=== PATIENT | female | born 1965 | race African-American/Black ===

== ENCOUNTER 2016-08-08 13:27 | Emergency (ER) | payer OTHER, BC ==
[2016-08-08] MEDS ORDERED: HYDROCODONE/ACETAMINOPHEN 5-325 MG TABLET PO ONE (14:30)
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
[2016-08-08 20:54] VITALS: BP 152/83
== END 2016-08-08 18:14 | disposition home or self-care (01) ==
LOC: ER 13:27
DX: S29.012A Strain of muscle and tendon of back wall of thorax, initial encounter (principal); I10 Essential (primary) hypertension; M54.9 Dorsalgia, unspecified; M54.6 Pain in thoracic spine; V87.7XXA Person injured in collision between other specified motor vehicles (traffic), initial encounter
CPT/HCPCS: 72070; 99283

== ENCOUNTER 2016-09-24 12:24 | Inpatient (IN) | payer BC, OTHER ==
[2016-09-24] MEDS ORDERED: ASPIRIN 81 MG TABLET, CHEWABLE PO ONE (12:53)
[2016-09-24] MEDS ORDERED: METOCLOPRAMIDE HCL ORAL SOLN 10 MG/10 ML UDCUP PO ONE (13:10)
[2016-09-24] MEDS ORDERED: LIDOCAINE 2% VISCOUS SOLN 20 ML UDCUP PO ONE (13:10)
[2016-09-24] MEDS ORDERED: MAG HYDROX/AL HYDROX/SIMETH SUSP 30 ML UDCUP PO ONE (13:10)
--- NOTE | 2016-09-24 13:12 | ER Document Report ---
ED Medical Screen (RME) - General Chief Complaint: Chest Pain Stated Complaint: CHEST PAIN Time Seen by Provider: 09/24/16 13:10 TRAVEL OUTSIDE OF THE [place] IN LAST 30 DAYS: No - HPI Notes: 09/24/16 13:11 Chest pain starting yesterday increasing early this morning 6 o'clock denies any cardiac history - Related Data Allergies/Adverse Reactions: No Known Allergies Allergy (Verified 09/24/16 12:50) Past Medical History - Past Medical History Cardiac Medical History: Reports: Hx Hypertension Renal/ Medical History: Denies: Hx Peritoneal Dialysis - Immunizations Hx Diphtheria, Pertussis, Tetanus Vaccination: Yes Review of Systems - Review of Systems Cardiovascular: Chest pain Physical Exam - Vital signs Vitals: Temp Pulse Resp BP Pulse Ox 97.9 F 75 12 184/84 H 97 09/24/16 12:50 09/24/16 12:50 09/24/16 12:50 09/24/16 12:50 09/24/16 12:50 - Respiratory Respiratory status: No respiratory distress Chest status: Nontender Breath sounds: Normal Chest palpation: Normal Course - Vital Signs Vital signs: Temp Pulse Resp BP Pulse Ox 97.9 F 75 12 184/84 H 97 09/24/16 12:50 09/24/16 12:50 09/24/16 12:50 09/24/16 12:50 09/24/16 12:50
[2016-09-24 13:50] LABS: ABSOLUTE BASOPHILS # (AUTO) 0.1 10^3/uL (0.0-0.2); ABSOLUTE EOSINOPHILS # (AUTO) 0.2 10^3/uL (0.0-0.6); ABSOLUTE LYMPHOCYTES (AUTO) 2.4 10^3/uL (0.5-4.7); ABSOLUTE MONOCYTES (AUTO) 0.5 10^3/uL (0.1-1.4); ABSOLUTE NEUT (AUTO) 4.5 10^3/uL (1.7-8.2); BASOPHILS % (AUTO) 0.9 % (0-2); EOSINOPHILS % (AUTO) 3.1 % (0-6); HEMATOCRIT 36.6 % (36.0-47.0); HEMOGLOBIN 12.4 g/dL (12.0-15.5); HGB HCT DIFFERENCE 0.6; LYMPHOCYTES % (AUTO) 31.4 % (13-45); MEAN CORPUSCULAR HEMOGLOBIN 26.1 pg (27.0-33.4); MEAN CORPUSCULAR HGB CONC 33.7 g/dL (32.0-36.0); MEAN CORPUSCULAR VOLUME 78 fl (80-97); RED BLOOD COUNT 4.72 10^6/uL (3.72-5.28); RED CELL DISTRIBUTION WIDTH 13.6 % (11.5-14.0); SEGMENTED NEUTROPHILS % (AUTO) 58.6 % (42-78); WHITE BLOOD COUNT 7.6 10^3/uL (4.0-10.5)
--- NOTE | 2016-09-24 13:58 | ER Document Report ---
ED General - General Chief Complaint: Chest Pain Stated Complaint: CHEST PAIN Time Seen by Provider: 09/24/16 13:10 Notes: 51-year-old female with obesity and hypertension presents with chest pain off and on for about a week and a half, but worse today when she woke up. Started at 6 AM while she was exerting herself and is let off when she relaxes and gets worse when she exerts herself including working with patients, she is a caregiver. It also has some associated back pain but she does not describe his radiation. No other radiation, described as pressure-like and tingling and severe. Currently out of 5. She was given aspirin and a GI cocktail which she probably vomited but did not feel nauseous before the pain began or now. No history of cardiac problems but has never had a stress test. Nonpleuritic. No cough hemoptysis or leg swelling. TRAVEL OUTSIDE OF THE [place] IN LAST 30 DAYS: No - Related Data Allergies/Adverse Reactions: No Known Allergies Allergy (Verified 09/24/16 12:50) Past Medical History - Social History Smoking Status: Unknown if Ever Smoked Family History: Reviewed & Not Pertinent Patient has suicidal ideation: No Patient has homicidal ideation: No - Past Medical History Cardiac Medical History: Reports: Hx Hypertension Renal/ Medical History: Denies: Hx Peritoneal Dialysis - Immunizations Hx Diphtheria, Pertussis, Tetanus Vaccination: Yes Review of Systems - Review of Systems Notes: REVIEW OF SYSTEMS GEN: Denies fever, chills, weight loss ENT: Denies sore throat, nasal discharge, ear pain EYES: Denies blurry vision, eye pain, discharge CV: Chest pain RESP: Denies cough, shortness of breath, wheezing GI: Denies abdominal pain, nausea, vomiting, diarrhea MSK: Denies joint pain/swelling, edema, SKIN: Denies rash, skin lesions LYMPH: Denies swollen glands/lymph nodes NEURO: Denies headache, focal weakness or numbness, dizziness PSYCH: Denies depression, suicidal or homicidal ideation PHYSICAL EXAMINATION General: No acute distress, well-nourished morbidly obese. Head: Atraumatic, normocephalic ENT: Mouth normal, oropharynx moist, no exudates or tonsillar enlargement Eyes: Conjunctiva normal, pupils equal, lids normal Neck: No JVD, supple, no guarding CVS: Normal rate, regular rhythm, no murmurs Resp: No resp distress, equal and normal breath sounds bilaterally GI: Nondistended, soft, no tenderness to palpation, no rebound or guarding Ext: No deformities, no edema, normal range of motion in upper and lower ext Back: No CVA or midline TTP Skin: No rash, warm Lymphatic: No lymphadeopathy noted Neuro: Awake, alert. Face symmetric. GCS 15. Physical Exam - Vital signs Vitals: Temp Pulse Resp BP Pulse Ox 97.9 F 75 12 184/84 H 97 09/24/16 12:50 09/24/16 12:50 09/24/16 12:50 09/24/16 12:50 09/24/16 12:50 Course - Re-evaluation Re-evalutation: 09/24/16 13:57 Obese 51-year-old female presents with chest pain which has both typical and atypical features, and seems to be worsening over the last 2 weeks with exertion. She appears well, however clearly has risk factors for coronary disease. Her physical exam is unremarkable. Her EKG shows some nonspecific changes. Heart score is 5. Will check troponin EKG and labs and likely admit for stress testing. 09/24/16 14:21 If negative. Given her heart score she was admitted. Accepted by Dr. Flores at 2:21 PM. Telemetry ops. - Vital Signs Vital signs: Temp Pulse Resp BP Pulse Ox 97.9 F 75 12 184/84 H 97 09/24/16 12:50 09/24/16 12:50 09/24/16 12:50 09/24/16 12:50 09/24/16 12:50 - Laboratory Result Diagrams: 09/24/16 13:30 09/24/16 13:30 Laboratory results interpreted by me: 09/24/16 09/24/16 13:30 13:30 MCV 78 L MCH 26.1 L Total Protein 8.5 H Lipase 1126.7 H - Diagnostic Test Radiology reviewed: Pending, Image reviewed - EKG Interpretation by Ut EKG shows normal: Sinus rhythm Rhythm: NSR Additional EKG results interpreted by me: 09/24/16 13:57 Subtle T-wave inversions in precordial leads Discharge - Discharge Clinical Impression: Chest pain Qualifiers: Chest pain type: other chest pain Qualified Code(s): R07.89 - Other chest pain ; R07.8 - Other chest pain Condition: Good Disposition: ADMITTED OBSERVATION Admitting Provider: Hospitalist Unit Admitted: Telemetry
[2016-09-24 14:04] LABS: ALANINE AMINOTRANSFERASE 24 U/L (9-52); ALBUMIN 4.6 g/dL (3.5-5.0); ALKALINE PHOSPHATASE 97 U/L (38-126); ANION GAP 12 (5-19); ASPARTATE AMINO TRANSFERASE 22 U/L (14-36); BILIRUBIN,DIRECT 0.2 mg/dL (0.0-0.4); BILIRUBIN,TOTAL 1.3 mg/dL (0.2-1.3); BLOOD UREA NITROGEN 16 mg/dL (7-20); CALCIUM 9.9 mg/dL (8.4-10.2); CARBON DIOXIDE 26 mmol/L (22-30); CHLORIDE 105 mmol/L (98-107); CREATINE KINASE 82 U/L (30-135); CREATININE RESULT 0.75 mg/dL (0.52-1.25); GLUCOSE 88 mg/dL (75-110); LIPASE 1126.7 U/L (23-300); POTASSIUM 4.1 mmol/L (3.6-5.0); SODIUM 142.7 mmol/L (137-145); TOTAL PROTEIN 8.5 g/dL (6.3-8.2)
[2016-09-24 14:10] LABS: PROTHROMBIN TIME 13.5 SEC (11.4-15.4)
[2016-09-24 14:12] LABS: CREATINE KINASE MB 0.53 ng/mL (<4.55)
[2016-09-24 14:17] LABS: TROPONIN I < 0.012 ng/mL
--- NOTE | 2016-09-24 14:20 | RADIOLOGY REPORT (SQ) ---
EXAM DESCRIPTION: CHEST PA/LAT COMPLETED DATE/TIME: 09/24/2016 2:00 pm REASON FOR STUDY: cp COMPARISON: None. EXAM PARAMETERS: NUMBER OF VIEWS: two views TECHNIQUE: Digital Frontal and Lateral radiographic views of the chest acquired. RADIATION DOSE: NA LIMITATIONS: none FINDINGS: LUNGS AND PLEURA: No opacities, masses or pneumothorax. No pleural effusion. MEDIASTINUM AND HILAR STRUCTURES: No masses or contour abnormalities. HEART AND VASCULAR STRUCTURES: Heart normal size. No evidence for failure. BONES: No acute findings. HARDWARE: None in the chest. OTHER: No other significant finding. IMPRESSION: NO SIGNIFICANT RADIOGRAPHIC FINDING IN THE CHEST. TECHNICAL DOCUMENTATION: JOB ID: [id number] [employer]- All Rights Reserved
[2016-09-24] MEDS ORDERED: NITROGLYCERIN 0.4 MG/TAB 25 TAB/BOTTLE SL PRN (15:46)
[2016-09-24] MEDS ORDERED: KETOROLAC TROMETHAMINE INJ/PF 30 MG/1 ML SDV IV ONE (15:49)
[2016-09-24] MEDS ORDERED: DEXTROSE 50%-WATER 25 GM/50 ML DISP.SYRIN IV PRN ×2 (17:45)
[2016-09-24] MEDS ORDERED: DEXTROSE 40% GEL 15 GM TUBE PO PRN ×2 (17:45)
[2016-09-24] MEDS ORDERED: NORMAL SALINE 1000 ML 1,000 ML IV PRN (17:45)
[2016-09-24] MEDS ORDERED: GLUCAGON,HUMAN RECOMB 1 MG INJ SUBCUT PRN (17:45)
[2016-09-24] MEDS ORDERED: ALBUTEROL SULFATE HFA (90 MCG/PUFF) 8 GM MDI (1 MDI/ER DISP) IH PRN (17:47)
[2016-09-24] MEDS ORDERED: ALBUTEROL SULFATE HFA (90 MCG/PUFF) 200 PUFF/8.5 GM MDI IH PRN (18:01)
[2016-09-24 18:49] LABS: CREATINE KINASE MB 2.47 ng/mL (<4.55)
[2016-09-24 18:53] LABS: TROPONIN I < 0.012 ng/mL
[2016-09-24] MEDS ORDERED: ENOXAPARIN SODIUM INJ 40 MG/0.4 ML DISP.SYRIN SUBCUT ONE (19:00)
--- NOTE | 2016-09-24 19:12 | PDOC H&P ---
History of Present Illness Admission Date/PCP: 09/24/16 14:26 [facility] Patient complains of: Abdominal Pain History of Present Illness: LUCILLE PÉREZ is a 51 year old female known to my practice who presented to the ED earlier today with complain of intermittent RUQ abdominal pain over last 2 weeks. Patient reported use of OTC Ibuprofen for pain relief. Due to severe unremitting pain this morning she decided to seek medical attention. While in the ED she vomited several times. She denied definite chest pain or radiation of pain into her neck, jaw, shoulder or arm. No palpitation, diaphoresis, or SOB. She denied any fever or chills. She denied alcohol ingestion, unusual food or drink ingestion recently. She denied similar symptoms recently. Surgical history is significant for tubal ligation. Past Medical History Cardiac Medical History: Reports: Hypertension Social History Smoking Status: Never Smoker Frequency of Alcohol Use: None Hx Recreational Drug Use: No Drugs: None Hx Prescription Drug Abuse: No - Advance Directive Resuscitation Status: Full Code Family History Family History: Reviewed & Not Pertinent Parental Family History Reviewed: Yes Children Family History Reviewed: Yes Sibling(s) Family History Reviewed.: Yes Medication/Allergy Home Medications: Albuterol Sulfate [Proair HFA] 2 puff IH DAILYP PRN 09/24/16 Hydrochlorothiazide 25 mg PO DAILY 09/24/16 Ibuprofen [Motrin 800 mg Tablet] 800 mg PO BIDP PRN 09/24/16 Umeclidinium Brm/Vilanterol Tr [Anoro Ellipta 62.5-25 Mcg INH] 1 each IH DAILY 09/24/16 Allergies/Adverse Reactions: No Known Allergies Allergy (Verified 09/24/16 12:50) Review of Systems Constitutional: ABSENT: chills, fever(s), headache(s), weight gain, weight loss Eyes: ABSENT: visual disturbances Ears: ABSENT: hearing changes Nose, Mouth, and Throat: ABSENT: as per HPI, headache(s), mouth pain, sore throat, vertigo, other Breasts: ABSENT: as per HPI, other Cardiovascular: ABSENT: chest pain, dyspnea on exertion, edema, orthropnea, palpitations Respiratory: ABSENT: cough, hemoptysis Gastrointestinal: PRESENT: abdominal pain - RUQ region, nausea, vomiting. ABSENT: as per HPI, bloating, coffee ground emesis, constipation, diarrhea, dysphagia, heartburn, hematemesis, hematochezia, melena, other Genitourinary: ABSENT: dysuria, hematuria Musculoskeletal: ABSENT: joint swelling Neurological: ABSENT: abnormal gait, abnormal speech, confusion, dizziness, focal weakness, syncope Psychiatric: ABSENT: anxiety, depression, homidical ideation, suicidal ideation Endocrine: ABSENT: cold intolerance, heat intolerance, menstrual abnormalities, polydipsia, polyuria Hematologic/Lymphatic: ABSENT: easy bleeding, easy bruising, lymphadenopathy Allergic/Immunologic: ABSENT: as per HPI, seasonal rhinorrhea, other Physical Exam Vital Signs: Temp Pulse Resp BP Pulse Ox 98.2 F 82 16 137/91 H 100 09/24/16 16:57 09/24/16 18:45 09/24/16 16:57 09/24/16 16:57 09/24/16 16:57 Intake & Output 09/23/16 09/24/16 09/25/16 06:59 06:59 06:59 Intake Total 0 Balance 0 Weight 96.6 kg General appearance: PRESENT: no acute distress, cooperative, obese Head exam: PRESENT: atraumatic, normocephalic Eye exam: PRESENT: conjunctiva pink, EOMI, PERRLA. ABSENT: scleral icterus Ear exam: PRESENT: normal external ear exam Mouth exam: PRESENT: moist, tongue midline Throat exam: ABSENT: post pharyngeal erythema, tonsillar erythema, tonsillar exudate, tonsillogmegaly, other Neck exam: PRESENT: full ROM. ABSENT: carotid bruit, JVD, lymphadenopathy, thyromegaly Respiratory exam: PRESENT: clear to auscultation saulo Cardiovascular exam: PRESENT: RRR. ABSENT: diastolic murmur, rubs, systolic murmur Pulses: PRESENT: normal dorsalis pedis pul, +2 pedal pulses bilateral Vascular exam: PRESENT: normal capillary refill GI/Abdominal exam: PRESENT: normal bowel sounds, tenderness - mostly in RUQ region, equivocal to deep palpation over LUQ and CVA regions. ABSENT: ascites, diminished bowel sounds, distended, firm, guarding, hernia, hyperactive bowel sounds, hypoactive bowel sounds, mass, Daniels's sign, organolmegaly, rebound, rigid, soft, other Rectal exam: PRESENT: deferred Extremities exam: ABSENT: pedal edema Musculoskeletal exam: PRESENT: deformity - related to joint involvement with arthritis Neurological exam: PRESENT: alert, awake, oriented to person, oriented to place , oriented to time, oriented to situation, CN II-XII grossly intact. ABSENT: motor sensory deficit Psychiatric exam: PRESENT: appropriate affect, normal mood. ABSENT: homicidal ideation, suicidal ideation Skin exam: PRESENT: dry, intact, warm. ABSENT: cyanosis, rash Results Laboratory Results: 09/24/16 09/24/16 18:10 18:10 Creatine Kinase 113 CK-MB (CK-2) 2.47 Troponin I < 0.012 Impressions: Chest X-Ray 09/24/16 13:10 IMPRESSION: NO SIGNIFICANT RADIOGRAPHIC FINDING IN THE CHEST. Assessment & Plan - Diagnosis (1) Acute pancreatitis Qualifiers: Pancreatitis type: unspecified pancreatitis type Acute pancreatitis complication: unspecified Qualified Code(s): K85.90 - Acute pancreatitis without necrosis or infection, unspecified Is this a current diagnosis for this admission?: YesPlan: See admitting physician orders. (2) Abdominal pain, acute, right upper quadrant Is this a current diagnosis for this admission?: YesPlan: See admitting physician orders. (3) COPD (chronic obstructive pulmonary disease) Qualifiers: COPD type: unspecified COPD Qualified Code(s): J44.9 - Chronic obstructive pulmonary disease, unspecified Is this a current diagnosis for this admission?: YesPlan: See admitting physician orders. (4) HTN (hypertension) Qualifiers: Hypertension type: essential hypertension Qualified Code(s): I10 - Essential (primary) hypertension Is this a current diagnosis for this admission?: YesPlan: See admitting physician orders. - Time Time Spent: 50 to 70 Minutes Medications reviewed and adjusted accordingly: Yes Anticipated discharge: Home Within: Other - Inpatient Certification Medical Necessity: Need Close Monitoring Due to Risk of Patient Decompensation, Need For IV Fluids, Need For Continuous Telemetry Monitoring, Need for Nebulizer Therapy and Monitoring of Response, Risk of Complication if Not Cared For in Hospital Post Hospital Care: D/C Art Therapy Specialist Documentation - Plan Summary Plan Summary: See admitting physician orders.
[2016-09-24] MEDS ORDERED: ALBUTEROL SULFATE 0.083% NEB 2.5 MG/3 ML AMPUL NEB PRN (19:13)
[2016-09-24] MEDS: ONDANSETRON HCL INJ/PF 4 MG/2 ML SDV IV PRN (19:31)
[2016-09-24] MEDS: MORPHINE SULFATE 10 MG/ML INJ IV PRN (20:08)
--- NOTE | 2016-09-24 21:46 | EKG REPORT ---
SEVERITY:- BORDERLINE ECG - SINUS RHYTHM BORDERLINE INFERIOR Q WAVES : Confirmed by: Cal Santillan 24-Sep-2016 21:45:06
[2016-09-25 00:15] LABS: CREATINE KINASE MB 3.45 ng/mL (<4.55)
[2016-09-25 00:16] LABS: TROPONIN I < 0.012 ng/mL
[2016-09-25] MEDS: ONDANSETRON HCL INJ/PF 4 MG/2 ML SDV IV PRN ×2 (00:32→05:20)
[2016-09-25] MEDS: MORPHINE SULFATE 10 MG/ML INJ IV PRN ×5 (00:32→22:47)
--- NOTE | 2016-09-25 04:08 | RADIOLOGY REPORT (SQ) ---
EXAM DESCRIPTION: CT ABD/PELVIS WITH IV ORAL COMPLETED DATE/TIME: 09/25/2016 3:38 am REASON FOR STUDY: Abdominal pain with elevated Lipase level COMPARISON: CR, 09/24/2016. TECHNIQUE: CT scan of the abdomen and pelvis performed using helical scanning technique with dynamic intravenous contrast injection. No oral contrast. Images reviewed with lung, soft tissue, and bone windows. Reconstructed coronal and sagittal MPR images reviewed. Delayed images for evaluation of the urinary system also acquired. All images stored on PACS. All CT scanners at this facility use dose modulation, iterative reconstruction, and/or weight based d osing when appropriate to reduce radiation dose to as low as reasonably achievable (ALARA). [facility]: Dose Right [facility]: CareDose [facility]: Dose Right [facility]: Teradose 4D [facility]: Next 2 Greatness CONTRAST TYPE AND DOSE: contrast/concentration: Isovue 370.00 mg/ml; Total Contrast Delivered: 100.0 ml; Total Saline Delivered: 72.0 ml RENAL FUNCTION: Creatinine 0.8 RADIATION DOSE: Up-to-date CT equipment and radiation dose reduction techniques were employed. CTDIv ol: 20.5 mGy. DLP: 1998 mGy-cm.. LIMITATIONS: None. FINDINGS: LOWER CHEST: Small likely atelectasis or scar of bilateral lung bases, right more than lef t. LIVER: Normal size. No masses. No dilated ducts. SPLEEN: Normal size. No focal lesions. PANCREAS: 4.5 x 5.1 x 3.9 cm complex cystic mass appears associated with the pancreatic head. GALLBLADDER: Gallstones. No inflammatory changes to suggest cholecystitis. ADRENAL GLANDS: No significant masses or asymmetry. RIGHT KIDNEY AND URETER: No solid masses. No significant calcifications. No hydronephrosis or hyd roureter. LEFT KIDNEY AND URETER: No solid masses. No significant calcifications. No hydronephrosis or hydr oureter. AORTA AND VESSELS: No aneurysm. No dissection. Renal arteries, SMA, celiac without stenosis. RETROPERITONEUM: No retroperitoneal adenopathy, hemorrhage or masses. BOWEL AND PERITONEAL CAVITY: No masses or inflammatory changes. No free fluid or peritoneal masses. Small colonic diverticulosis. APPENDIX: Normal. PELVIS: No mass or free fluid. Normal bladder. ABDOMINAL WALL: No masses. No hernias. BONES: No significant or acute findings. OTHER: No other significant finding. IMPRESSION: 1. A 5 cm complex cystic mass of the right upper quadrant may indicate a pancreatic alie plasm ; differential diagnosis includes abscess and complex pseudocyst. Further evaluation with hebert peace contrast MRI of the abdomen recommended. 2. Cholelithiasis. TECHNICAL DOCUMENTATION: JOB ID: [id number] Quality ID # [id number]: Final reports with documentation of one or more dose reduction techniques (e.g., Au tomated exposure control, adjustment of the mA and/or kV according to patient size, use of iterative reconstruction technique) 2010 [employer]- All Rights Reserved
[2016-09-25] MEDS: LANSOPRAZOLE 30 MG TAB.RAP.DR PO SCH (05:20)
[2016-09-25 06:53] LABS: ABSOLUTE BASOPHILS # (AUTO) 0.1 10^3/uL (0.0-0.2); ABSOLUTE LYMPHOCYTES (AUTO) 2.2 10^3/uL (0.5-4.7); ABSOLUTE MONOCYTES (AUTO) 0.8 10^3/uL (0.1-1.4); ABSOLUTE NEUT (AUTO) 8.4 10^3/uL (1.7-8.2); BASOPHILS % (AUTO) 0.5 % (0-2); EOSINOPHILS % (AUTO) 0.4 % (0-6); HEMATOCRIT 34.3 % (36.0-47.0); HEMOGLOBIN 11.7 g/dL (12.0-15.5); HGB HCT DIFFERENCE 0.8; LYMPHOCYTES % (AUTO) 19.3 % (13-45); MEAN CORPUSCULAR HEMOGLOBIN 26.1 pg (27.0-33.4); MEAN CORPUSCULAR HGB CONC 34.1 g/dL (32.0-36.0); MEAN CORPUSCULAR VOLUME 77 fl (80-97); MONOCYTES % (AUTO) 6.6 % (3-13); RED BLOOD COUNT 4.48 10^6/uL (3.72-5.28); RED CELL DISTRIBUTION WIDTH 13.5 % (11.5-14.0); SEGMENTED NEUTROPHILS % (AUTO) 73.2 % (42-78); WHITE BLOOD COUNT 11.5 10^3/uL (4.0-10.5)
[2016-09-25 07:13] LABS: ALANINE AMINOTRANSFERASE 27 U/L (9-52); ALBUMIN 4.2 g/dL (3.5-5.0); ALKALINE PHOSPHATASE 88 U/L (38-126); AMYLASE 352 U/L (30-110); ANION GAP 12 (5-19); ASPARTATE AMINO TRANSFERASE 23 U/L (14-36); BILIRUBIN,DIRECT 0.3 mg/dL (0.0-0.4); BILIRUBIN,TOTAL 1.2 mg/dL (0.2-1.3); BLOOD UREA NITROGEN 10 mg/dL (7-20); CALCIUM 9.4 mg/dL (8.4-10.2); CARBON DIOXIDE 25 mmol/L (22-30); CHLORIDE 103 mmol/L (98-107); CHOLESTEROL 227.51 mg/dL (0-200); CREATINE KINASE 161 U/L (30-135); Direct HDL 52 mg/dL (>40); GLUCOSE 107 mg/dL (75-110); LIPASE 1866.7 U/L (23-300); POTASSIUM 4.2 mmol/L (3.6-5.0); SODIUM 140.2 mmol/L (137-145); TOTAL PROTEIN 7.6 g/dL (6.3-8.2); TRIGLYCERIDES 85 mg/dL (<150)
[2016-09-25 07:29] LABS: DIRECT LDL 165 mg/dL (<100)
[2016-09-25 07:30] LABS: CREATINE KINASE MB 3.27 ng/mL (<4.55)
[2016-09-25 07:36] LABS: TROPONIN I < 0.012 ng/mL
[2016-09-25] MEDS ORDERED: (PENDING PHARMACY ID) (Umeclidinium Brm/Vilanterol Tr [Anoro Ellipta 62.5-25 Mcg Inh] 1 EA IH SCH (10:00)
[2016-09-25] MEDS: CEFTRIAXONE 1 GM/D5W RTU 50 ML IV SCH (10:23)
[2016-09-25] MEDS: ENOXAPARIN SODIUM INJ 40 MG/0.4 ML DISP.SYRIN SUBCUT SCH (10:23)
--- NOTE | 2016-09-25 14:29 | PDOC PROGRESS REPORT ---
Subjective Progress Note for:: 09/25/16 Subjective:: Patient reported episodes of pain over RUQ and epigastric region. Nausea improved, no vomiting. No diarrhea. No chest pain or difficulty with breathing. Physical Exam Vital Signs: Temp Pulse Resp BP Pulse Ox 98.0 F 65 15 125/72 97 09/25/16 11:54 09/25/16 11:54 09/25/16 11:54 09/25/16 11:54 09/25/16 11:54 Intake & Output 09/24/16 09/25/16 09/26/16 06:59 06:59 06:59 Intake Total 0 Output Total 3 Balance -3 Weight 96.6 kg General appearance: PRESENT: no acute distress, obese Head exam: PRESENT: atraumatic, normocephalic Eye exam: PRESENT: conjunctiva pink, EOMI, PERRLA. ABSENT: scleral icterus Mouth exam: PRESENT: moist, tongue midline Respiratory exam: PRESENT: clear to auscultation saulo Cardiovascular exam: PRESENT: RRR. ABSENT: diastolic murmur, rubs, systolic murmur GI/Abdominal exam: PRESENT: tenderness - RUQ and Epigastric region. ABSENT: ascites, diminished bowel sounds, distended, firm, guarding, hernia, hyperactive bowel sounds, hypoactive bowel sounds, mass, Daniels's sign, normal bowel sounds, organolmegaly, rebound, rigid, soft, other Extremities exam: ABSENT: pedal edema Musculoskeletal exam: PRESENT: deformity - related to joint involvement with arthritis Neurological exam: PRESENT: alert, awake, oriented to person, oriented to place , oriented to time, oriented to situation, CN II-XII grossly intact. ABSENT: motor sensory deficit Psychiatric exam: PRESENT: appropriate affect, normal mood. ABSENT: homicidal ideation, suicidal ideation Skin exam: PRESENT: dry, intact, warm. ABSENT: cyanosis, rash Results Laboratory Results: 09/25/16 05:58 09/25/16 05:58 09/25/16 09/25/16 05:58 05:58 WBC 11.5 H RBC 4.48 Hgb 11.7 L Hct 34.3 L MCV 77 L MCH 26.1 L MCHC 34.1 RDW 13.5 Plt Count 259 Seg Neutrophils % 73.2 Lymphocytes % 19.3 Monocytes % 6.6 Eosinophils % 0.4 Basophils % 0.5 Absolute Neutrophils 8.4 H Absolute Lymphocytes 2.2 Absolute Monocytes 0.8 Absolute Eosinophils 0.0 Absolute Basophils 0.1 Sodium 140.2 Potassium 4.2 Chloride 103 Carbon Dioxide 25 Anion Gap 12 BUN 10 Creatinine 0.70 Est GFR ( Amer) > 60 Est GFR (Non-Af Amer) > 60 Glucose 107 Calcium 9.4 Total Bilirubin 1.2 AST 23 ALT 27 Alkaline Phosphatase 88 Total Protein 7.6 Albumin 4.2 Triglycerides 85 Cholesterol 227.51 H LDL Cholesterol Direct 165 H VLDL Cholesterol 17.0 HDL Cholesterol 52 Amylase 352 H Lipase 1866.7 H 09/24/16 09/24/16 09/25/16 23:45 23:45 05:58 Creatine Kinase 151 H 161 H CK-MB (CK-2) 3.45 Troponin I < 0.012 09/25/16 05:58 Creatine Kinase CK-MB (CK-2) 3.27 Troponin I < 0.012 Impressions: Chest X-Ray 09/24/16 13:10 IMPRESSION: NO SIGNIFICANT RADIOGRAPHIC FINDING IN THE CHEST. Abdomen/Pelvis CT 09/25/16 00:00 IMPRESSION: 1. A 5 cm complex cystic mass of the right upper quadrant may indicate a pancreatic neoplasm ; differential diagnosis includes abscess and complex pseudocyst. Further evaluation with dynamic contrast MRI of the abdomen recommended. 2. Cholelithiasis. Assessment & Plan - Diagnosis (1) Acute pancreatitis Qualifiers: Pancreatitis type: unspecified pancreatitis type Acute pancreatitis complication: unspecified Qualified Code(s): K85.90 - Acute pancreatitis without necrosis or infection, unspecified Is this a current diagnosis for this admission?: YesPlan: CT scan abdomen suggested questionable pancreatic cyst vs mass. We will obtain abdomen and pelvic dynamic contrast study for further evaluation. In view of her Leukocytosis, I will start on IV Rocephin empiric antibiotic coverage. She will remain NPO except for ice chips and contrast administration as necessary. I will maintain her on IV Morphine sulfate for pain management. Meperidine is not available at this facility for pain management. (2) Abdominal pain, acute, right upper quadrant Is this a current diagnosis for this admission?: YesPlan: See attending physician orders. (3) COPD (chronic obstructive pulmonary disease) Qualifiers: COPD type: unspecified COPD Qualified Code(s): J44.9 - Chronic obstructive pulmonary disease, unspecified Is this a current diagnosis for this admission?: YesPlan: See attending physician orders. (4) HTN (hypertension) Qualifiers: Hypertension type: essential hypertension Qualified Code(s): I10 - Essential (primary) hypertension Is this a current diagnosis for this admission?: YesPlan: See attending physician orders. - Time Time Spent with patient: 35 or more minutes Medications reviewed and adjusted accordingly: Yes Anticipated discharge: SNF Within: Other - Plan Summary Plan Summary: See attending physician orders.
[2016-09-26] MEDS: LANSOPRAZOLE 30 MG TAB.RAP.DR PO SCH (06:06)
[2016-09-26 06:08] LABS: ABSOLUTE EOSINOPHILS # (AUTO) 0.1 10^3/uL (0.0-0.6); ABSOLUTE LYMPHOCYTES (AUTO) 1.5 10^3/uL (0.5-4.7); ABSOLUTE MONOCYTES (AUTO) 1.1 10^3/uL (0.1-1.4); ABSOLUTE NEUT (AUTO) 9.9 10^3/uL (1.7-8.2); BASOPHILS % (AUTO) 0.4 % (0-2); EOSINOPHILS % (AUTO) 0.5 % (0-6); HEMATOCRIT 34.2 % (36.0-47.0); HEMOGLOBIN 11.3 g/dL (12.0-15.5); HGB HCT DIFFERENCE -0.3; LYMPHOCYTES % (AUTO) 11.7 % (13-45); MEAN CORPUSCULAR HEMOGLOBIN 25.8 pg (27.0-33.4); MEAN CORPUSCULAR HGB CONC 33.2 g/dL (32.0-36.0); MEAN CORPUSCULAR VOLUME 78 fl (80-97); MONOCYTES % (AUTO) 8.6 % (3-13); RED CELL DISTRIBUTION WIDTH 13.8 % (11.5-14.0); SEGMENTED NEUTROPHILS % (AUTO) 78.8 % (42-78); WHITE BLOOD COUNT 12.6 10^3/uL (4.0-10.5)
[2016-09-26 06:30] LABS: ALANINE AMINOTRANSFERASE 26 U/L (9-52); ALBUMIN 3.7 g/dL (3.5-5.0); ALKALINE PHOSPHATASE 80 U/L (38-126); AMYLASE 455 U/L (30-110); ANION GAP 10 (5-19); ASPARTATE AMINO TRANSFERASE 25 U/L (14-36); BILIRUBIN,DIRECT 0.5 mg/dL (0.0-0.4); BILIRUBIN,TOTAL 1.5 mg/dL (0.2-1.3); BLOOD UREA NITROGEN 7 mg/dL (7-20); CARBON DIOXIDE 23 mmol/L (22-30); CHLORIDE 107 mmol/L (98-107); CREATININE RESULT 0.61 mg/dL (0.52-1.25); GLUCOSE 79 mg/dL (75-110); LIPASE 1511.2 U/L (23-300); POTASSIUM 3.4 mmol/L (3.6-5.0); SODIUM 140.3 mmol/L (137-145)
[2016-09-26] MEDS: ENOXAPARIN SODIUM INJ 40 MG/0.4 ML DISP.SYRIN SUBCUT SCH (09:44)
[2016-09-26] MEDS: CEFTRIAXONE 1 GM/D5W RTU 50 ML IV SCH (09:45)
[2016-09-26] MEDS: MORPHINE SULFATE 10 MG/ML INJ IV PRN ×2 (09:45→23:06)
[2016-09-26] MEDS ORDERED: DEXTROSE 5%-NORMAL SALINE 1,000 ML IV PRN (18:57)
[2016-09-26] MEDS ORDERED: LORAZEPAM INJ 2 MG/1 ML VIAL IV ONE (19:00)
[2016-09-26] MEDS ORDERED: LORAZEPAM INJ 2 MG/1 ML VIAL IV PRN ×2 (19:09→19:11)
--- NOTE | 2016-09-26 19:23 | PDOC PROGRESS REPORT ---
Subjective Progress Note for:: 09/26/16 Subjective:: Patient reported some improvement in her abdominal pain since last clinical evaluation. No recurrent nausea or vomiting. No diarrhea. No chest pain or difficulty with breathing. Episodes of hypoglycemia with need for IV resuscitation intervention. Patient refused schedule abdominal and Pelvic MRI due to her fear of getting into MRI machine. Physical Exam Vital Signs: Temp Pulse Resp BP Pulse Ox 97.6 F 86 16 132/76 H 96 09/26/16 15:46 09/26/16 16:47 09/26/16 16:47 09/26/16 15:46 09/26/16 16:47 Intake & Output 09/25/16 09/26/16 09/27/16 06:59 06:59 06:59 Intake Total 0 650 360 Output Total 3 Balance -3 650 360 Weight 96.6 kg 102 kg Physical Exam: General appearance: PRESENT: no acute distress, obese Head exam: PRESENT: atraumatic, normocephalic Eye exam: PRESENT: conjunctiva pink, EOMI, PERRLA. ABSENT: scleral icterus Mouth exam: PRESENT: moist, tongue midline Respiratory exam: PRESENT: clear to auscultation saulo Cardiovascular exam: PRESENT: RRR. ABSENT: diastolic murmur, rubs, systolic murmur GI/Abdominal exam: PRESENT: tenderness - RUQ and Epigastric region. ABSENT: ascites, diminished bowel sounds, distended, firm, guarding, hernia, hyperactive bowel sounds, hypoactive bowel sounds, mass, Daniels's sign, normal bowel sounds, organomegaly, rebound, rigid, soft, other Extremities exam: ABSENT: pedal edema Musculoskeletal exam: PRESENT: deformity - related to joint involvement with arthritis Neurological exam: PRESENT: alert, awake, oriented to person, oriented to place , oriented to time, oriented to situation, CN II-XII grossly intact. ABSENT: motor sensory deficit Psychiatric exam: PRESENT: appropriate affect, normal mood. ABSENT: homicidal ideation, suicidal ideation Skin exam: PRESENT: dry, intact, warm. ABSENT: cyanosis, rash Results Laboratory Results: 09/26/16 05:27 09/26/16 05:27 09/26/16 09/26/16 05:27 05:27 WBC 12.6 H RBC 4.40 Hgb 11.3 L Hct 34.2 L MCV 78 L MCH 25.8 L MCHC 33.2 RDW 13.8 Plt Count 239 Seg Neutrophils % 78.8 H Lymphocytes % 11.7 L Monocytes % 8.6 Eosinophils % 0.5 Basophils % 0.4 Absolute Neutrophils 9.9 H Absolute Lymphocytes 1.5 Absolute Monocytes 1.1 Absolute Eosinophils 0.1 Absolute Basophils 0.0 Sodium 140.3 Potassium 3.4 L Chloride 107 Carbon Dioxide 23 Anion Gap 10 BUN 7 Creatinine 0.61 Est GFR ( Amer) > 60 Est GFR (Non-Af Amer) > 60 Glucose 79 Calcium 9.0 Total Bilirubin 1.5 H AST 25 ALT 26 Alkaline Phosphatase 80 Total Protein 7.0 Albumin 3.7 Amylase 455 H Lipase 1511.2 H 09/24/16 09/24/16 09/25/16 23:45 23:45 05:58 Creatine Kinase 151 H 161 H CK-MB (CK-2) 3.45 Troponin I < 0.012 09/25/16 05:58 Creatine Kinase CK-MB (CK-2) 3.27 Troponin I < 0.012 Impressions: Chest X-Ray 09/24/16 13:10 IMPRESSION: NO SIGNIFICANT RADIOGRAPHIC FINDING IN THE CHEST. Abdomen/Pelvis CT 09/25/16 00:00 IMPRESSION: 1. A 5 cm complex cystic mass of the right upper quadrant may indicate a pancreatic neoplasm ; differential diagnosis includes abscess and complex pseudocyst. Further evaluation with dynamic contrast MRI of the abdomen recommended. 2. Cholelithiasis. Assessment & Plan - Diagnosis (1) Acute pancreatitis Qualifiers: Pancreatitis type: unspecified pancreatitis type Acute pancreatitis complication: unspecified Qualified Code(s): K85.90 - Acute pancreatitis without necrosis or infection, unspecified Is this a current diagnosis for this admission?: YesPlan: She will remain on NPO status. We will attempt to reschedule for abdominal Pelvic MRI in view of concern for possible pancreatic mass. Her Lipase and Amylase remain elevated. I did emphasized to her need for the MRI completion for further evaluation of her abnormal CT scan finding during this bedside evaluation. Maintain on IV Rocephin empiric coverage. She will receive IV Lorazepam 1 mg tong setter for MRI evaluation. (2) Abdominal pain, acute, right upper quadrant Is this a current diagnosis for this admission?: YesPlan: See attending physician orders. (3) COPD (chronic obstructive pulmonary disease) Qualifiers: COPD type: unspecified COPD Qualified Code(s): J44.9 - Chronic obstructive pulmonary disease, unspecified Is this a current diagnosis for this admission?: YesPlan: See attending physician orders. (4) HTN (hypertension) Qualifiers: Hypertension type: essential hypertension Qualified Code(s): I10 - Essential (primary) hypertension Is this a current diagnosis for this admission?: YesPlan: See attending physician orders. (5) Hypoglycemia Is this a current diagnosis for this admission?: NoPlan: Probably due to NPO status. I will change her IV fluid to D5N/S at current rate to avoid hypoglycemia. (6) Hypokalemia Is this a current diagnosis for this admission?: NoPlan: May be related to poor PO intake on NPO status. She will receive IV potassium rider for replacement. - Time Time Spent with patient: 35 or more minutes Medications reviewed and adjusted accordingly: Yes Anticipated discharge: Other Within: Other - Inpatient Certification Based on my medical assessment, after consideration of the patient's comorbidities, presenting symptoms, or acuity I expect that the services needed warrant INPATIENT care.: Yes I certify that my determination is in accordance with my understanding of Medicare's requirements for reasonable and necessary INPATIENT services [42 CFR 412.3e].: Yes Medical Necessity: Need Close Monitoring Due to Risk of Patient Decompensation, Need For IV Fluids, Need For Continuous Telemetry Monitoring, Need for IV Antibiotics, Risk of Complication if Not Cared For in Hospital Post Hospital Care: D/C Senior Credit Officer Documentation - Plan Summary Plan Summary: See attending physician orders.
[2016-09-26] MEDS: POTASSI CL 20 MEQ/50 ML RIDER 50 ML IV SCH ×2 (21:07→23:06)
[2016-09-27] MEDS: MORPHINE SULFATE 10 MG/ML INJ IV PRN (04:38)
[2016-09-27 05:02] LABS: ABSOLUTE EOSINOPHILS # (AUTO) 0.1 10^3/uL (0.0-0.6); ABSOLUTE LYMPHOCYTES (AUTO) 1.6 10^3/uL (0.5-4.7); ABSOLUTE MONOCYTES (AUTO) 1.1 10^3/uL (0.1-1.4); ABSOLUTE NEUT (AUTO) 9.3 10^3/uL (1.7-8.2); BASOPHILS % (AUTO) 0.2 % (0-2); EOSINOPHILS % (AUTO) 0.8 % (0-6); HEMATOCRIT 34.2 % (36.0-47.0); HEMOGLOBIN 11.2 g/dL (12.0-15.5); HGB HCT DIFFERENCE -0.6; LYMPHOCYTES % (AUTO) 13.1 % (13-45); MEAN CORPUSCULAR HEMOGLOBIN 25.3 pg (27.0-33.4); MEAN CORPUSCULAR HGB CONC 32.8 g/dL (32.0-36.0); MEAN CORPUSCULAR VOLUME 77 fl (80-97); RED BLOOD COUNT 4.42 10^6/uL (3.72-5.28); RED CELL DISTRIBUTION WIDTH 13.8 % (11.5-14.0); SEGMENTED NEUTROPHILS % (AUTO) 76.9 % (42-78); WHITE BLOOD COUNT 12.1 10^3/uL (4.0-10.5)
[2016-09-27 05:12] LABS: ALANINE AMINOTRANSFERASE 33 U/L (9-52); ALBUMIN 3.7 g/dL (3.5-5.0); ALKALINE PHOSPHATASE 83 U/L (38-126); AMYLASE 263 U/L (30-110); ANION GAP 8 (5-19); ASPARTATE AMINO TRANSFERASE 87 U/L (14-36); BILIRUBIN,DIRECT 0.3 mg/dL (0.0-0.4); BILIRUBIN,TOTAL 1.5 mg/dL (0.2-1.3); BLOOD UREA NITROGEN 5 mg/dL (7-20); CALCIUM 9.1 mg/dL (8.4-10.2); CARBON DIOXIDE 26 mmol/L (22-30); CHLORIDE 107 mmol/L (98-107); CREATININE RESULT 0.58 mg/dL (0.52-1.25); GLUCOSE 123 mg/dL (75-110); LIPASE 964.8 U/L (23-300); POTASSIUM 3.6 mmol/L (3.6-5.0); SODIUM 141.4 mmol/L (137-145); TOTAL PROTEIN 7.1 g/dL (6.3-8.2)
[2016-09-27] MEDS: LANSOPRAZOLE 30 MG TAB.RAP.DR PO SCH (06:16)
--- NOTE | 2016-09-27 11:26 | RADIOLOGY REPORT (SQ) ---
EXAM DESCRIPTION: MRI ABDOMEN COMBO COMPLETED DATE/TIME: 09/27/2016 11:13 am REASON FOR STUDY: Abnormal CT abd Pelvic with rec. dynamic MRI A P COMPARISON: 09/25/2016 TECHNIQUE: Multiplanar multisequence imaging performed without and with contrast including sagittal, axial and coronal T2, axial T1, axial gradient fat sat T1, axial, sagittal and coronal fat sat T1 po st contrast. CONTRAST TYPE AND DOSE: 20 mL Prohance. RENAL FUNCTION: GFR > 60. LIMITATIONS: None. FINDINGS: LIVER: Normal size. No masses or dilated ducts. CBD normal. SPLEEN: Normal size. No focal lesions. PANCREAS: 4.5 cm mass with central cystic component which appears to be in the head of the pancreas. Compresses the pancreatic duct posteriorly. GALLBLADDER: Multiple gallstones. ADRENAL GLANDS: No significant masses or asymmetry. RIGHT KIDNEY AND URETER: No masses. No hydronephrosis. LEFT KIDNEY AND URETER: No masses. No hydronephrosis. AORTA AND VESSELS: No aneurysm. No dissection. Renal arteries, SMA, celiac without stenosis. RETROPERITONEUM: No retroperitoneal adenopathy, hemorrhage or masses. BOWEL: No visualized masses. No inflammation. No significant dilatation. ABDOMINAL WALL AND PERITONEUM: No hernias. No free fluid. BONES: No acute or significant findings. OTHER: No other significant finding. IMPRESSION: Complex mass which appears to be in the head of the pancreas measuring 4.5 cm with a damian tral cystic/ necrotic component. Epicenter appears to be in the pancreas. Compression of the pancre atic duct posteriorly. TECHNICAL DOCUMENTATION: JOB ID: [id number] [employer]- All Rights Reserved
[2016-09-27] MEDS: ENOXAPARIN SODIUM INJ 40 MG/0.4 ML DISP.SYRIN SUBCUT SCH (11:46)
[2016-09-27] MEDS: CEFTRIAXONE 1 GM/D5W RTU 50 ML IV SCH (11:47)
--- NOTE | 2016-09-27 13:09 | PDOC TRANSFER SUMMARY ---
General Admission Date/PCP: 09/24/16 19:14 SADE ROSARIO Resuscitation Status: Full Code - Transfer Diagnosis (1) Acute pancreatitis Is this a current diagnosis for this admission?: Yes (2) Abdominal pain, acute, right upper quadrant Is this a current diagnosis for this admission?: Yes (3) COPD (chronic obstructive pulmonary disease) Is this a current diagnosis for this admission?: Yes (4) HTN (hypertension) Is this a current diagnosis for this admission?: Yes (5) Hypoglycemia Is this a current diagnosis for this admission?: No (6) Hypokalemia Is this a current diagnosis for this admission?: No (7) Mass of pancreas Is this a current diagnosis for this admission?: YesDiagnosis Summary: Further evaluation with MRI revealed complex mass measuring about 4.5cm with cystic or necrotic component and compression of the pancreatic duct posteriorly. (8) Cholelithiasis Is this a current diagnosis for this admission?: YesDiagnosis Summary: CT scan and MRI of abdomen and pelvis did revealed multiple gallstones. - Transfer Medications Home Medications: Albuterol Sulfate [Proair HFA] 2 puff IH DAILYP PRN 09/24/16 Hydrochlorothiazide 25 mg PO DAILY 09/24/16 Ibuprofen [Motrin 800 mg Tablet] 800 mg PO BIDP PRN 09/24/16 Umeclidinium Brm/Vilanterol Tr [Anoro Ellipta 62.5-25 Mcg INH] 1 each IH DAILY 09/24/16 Transfer Medications: Current Medications Albuterol (Ventolin 0.083% Neb 2.5 Mg/3 Ml Ampul) 2.5 mg NEB RTQ4HP PRN PRN Reason: FOR WHEEZING Stop: 10/24/16 19:12 Dextrose (Dextrose Inj 50% Syringe (25 Gm/50 Ml)) 12.5 gm IV PRN PRN; Protocol PRN Reason: FOR BG 50-69 IN ALERT PATIENT Stop: 10/24/16 17:44 Last Admin: 09/26/16 16:14 Dose: 12.5 gm Dextrose (Dextrose Inj 50% Syringe (25 Gm/50 Ml)) 25 gm IV PRN PRN; Protocol PRN Reason: See Label Comments Stop: 10/24/16 17:44 Enoxaparin Sodium (Lovenox Inj 40 Mg/0.4 Ml Disp.Syrin) 40 mg SUBCUT DAILY ROSIBEL Stop: 10/25/16 09:59 Last Admin: 09/27/16 11:46 Dose: 40 mg Glucagon (Glucagen Inj 1 Mg Vial) 1 mg SUBCUT PRN PRN; Protocol PRN Reason: Evaluate for BG < 70 Stop: 10/24/16 17:44 Glucose (Glutose 40% Gel 15 Gm Tube) 15 gm PO PRN PRN; Protocol PRN Reason: For BG 50-69 in Alert Patient Stop: 10/24/16 17:44 Glucose (Glutose 40% Gel 15 Gm Tube) 30 gm PO PRN PRN; Protocol PRN Reason: FOR BG < 50 IN ALERT PATIENT Stop: 10/24/16 17:44 Sodium Chloride (Nacl 0.9% 1000 Ml Iv Soln) 1,000 mls @ 100 mls/hr IV CONTINUOUS PRN PRN Reason: THIS MED IS NOT "PRN" Stop: 10/24/16 17:44 Last Admin: 09/25/16 00:33 Dose: 1,000 ml Ceftriaxone Sodium/Dextrose (Rocephin Rtu 1 Gm/D5w 50 Ml Premix) 50 mls @ 100 mls/hr IV DAILY ROSIBEL Stop: 10/02/16 09:59 Last Admin: 09/27/16 11:47 Dose: 50 ml Dextrose/Sodium Chloride (D5ns 1000 Ml Iv Soln) 1,000 mls @ 100 mls/hr IV CONTINUOUS PRN PRN Reason: THIS MED IS NOT "PRN" Stop: 10/26/16 18:56 Last Admin: 09/27/16 04:40 Dose: 1,000 ml Lansoprazole (Prevacid 30 Mg Odt Tablet) 30 mg PO Q6AM ROSIBEL Stop: 10/25/16 05:59 Last Admin: 09/27/16 06:16 Dose: 30 mg Lorazepam (Ativan Inj 2 Mg/1 Ml Vial) 1 mg IV ONCALL PRN PRN Reason: PRIOR TO MRI Stop: 09/27/16 19:08 Last Admin: 09/27/16 11:46 Dose: 1 mg Morphine Sulfate (Morphine 10 Mg/Ml Inj) 1 mg IV Q4HP PRN PRN Reason: FOR PAIN Stop: 10/01/16 18:57 Last Admin: 09/27/16 04:38 Dose: 1 mg Ondansetron HCl (Zofran Inj/Pf 4 Mg/2 Ml Sdv) 4 mg IV Q4HP PRN Stop: 10/24/16 18:56 Last Admin: 09/25/16 05:20 Dose: 4 mg Patient Own Medication (Umeclidinium Brm/Vilanterol Tr [Anoro Ellipta 62.5-25 Mcg Inh]) 1 each IH DAILY ROSIBEL Stop: 10/25/16 09:59 - Allergies Allergies/Adverse Reactions: No Known Allergies Allergy (Verified 09/24/16 12:50) Hospital Course Hospital Course: Patient presented with complain of intermittent abdominal pain for about 2 weeks. She experienced episodes of vomiting in the ED which has since resolve on NPO status. Due to development of leukocytosis she was started on IV Rocephin. She maintain NPO status but experienced hypoglycemia and thereafter have been on IV d5N/S with satisfactory accuchek reading. Her CT scan of abdomen and pelvis did suggest multiple gall stones and pancreatic mass. In view of the latter findings further evaluation with Abdominal MRI dynamic contrast study revealed 4.5 cm complex pancreatic mass with central region of cystic or necrotic process, worrisome for neoplasm. Her serum amylase and lipase are showing downward trend with regard to acute pancreatitis but more concerning is the obstructing pancreatic mass. Patient is agreeable with transfer to [facility]. I did discuss case with Dr Rodríguez. She has been accepted and will be transfer to Dr. Hubbard when bed is available. Physical Exam Vital Signs: Temp Pulse Resp BP Pulse Ox 99.6 F 90 19 138/74 H 99 09/27/16 07:08 09/27/16 07:08 09/27/16 07:08 09/27/16 07:08 09/27/16 07:08 Intake & Output 09/26/16 09/27/16 09/28/16 06:59 06:59 06:59 Intake Total 650 1410 Output Total 950 Balance 650 460 Weight 102 kg 101.8 kg General appearance: PRESENT: no acute distress, obese Head exam: PRESENT: atraumatic, normocephalic Eye exam: PRESENT: conjunctiva pink, EOMI, PERRLA. ABSENT: scleral icterus Mouth exam: PRESENT: moist, tongue midline Respiratory exam: PRESENT: clear to auscultation saulo Cardiovascular exam: PRESENT: RRR. ABSENT: diastolic murmur, rubs, systolic murmur GI/Abdominal exam: PRESENT: tenderness - RUQ and Epigastric region. ABSENT: ascites, diminished bowel sounds, distended, firm, guarding, hernia, hyperactive bowel sounds, hypoactive bowel sounds, mass, Daniels's sign, normal bowel sounds, organomegaly, rebound, rigid, soft, other Extremities exam: ABSENT: pedal edema Musculoskeletal exam: PRESENT: deformity - related to joint involvement with arthritis Neurological exam: PRESENT: alert, awake, oriented to person, oriented to place , oriented to time, oriented to situation, CN II-XII grossly intact. ABSENT: motor sensory deficit Psychiatric exam: PRESENT: appropriate affect, normal mood. ABSENT: homicidal ideation, suicidal ideation Skin exam: PRESENT: dry, intact, warm. ABSENT: cyanosis, rash Results Laboratory Results: 09/27/16 04:06 09/27/16 04:06 09/26/16 09/27/16 09/27/16 05:27 04:06 04:06 WBC 12.1 H RBC 4.42 Hgb 11.2 L Hct 34.2 L MCV 77 L MCH 25.3 L MCHC 32.8 RDW 13.8 Plt Count 222 Seg Neutrophils % 76.9 Lymphocytes % 13.1 Monocytes % 9.0 Eosinophils % 0.8 Basophils % 0.2 Absolute Neutrophils 9.3 H Absolute Lymphocytes 1.6 Absolute Monocytes 1.1 Absolute Eosinophils 0.1 Absolute Basophils 0.0 Sodium 141.4 Potassium 3.6 Chloride 107 Carbon Dioxide 26 Anion Gap 8 BUN 5 L Creatinine 0.58 Est GFR ( Amer) > 60 Est GFR (Non-Af Amer) > 60 Glucose 123 H Calcium 9.1 Magnesium 1.9 Total Bilirubin 1.5 H AST 87 H ALT 33 Alkaline Phosphatase 83 Total Protein 7.1 Albumin 3.7 Amylase 263 H Lipase 964.8 H 09/24/16 09/24/16 09/25/16 23:45 23:45 05:58 Creatine Kinase 151 H 161 H CK-MB (CK-2) 3.45 Troponin I < 0.012 09/25/16 05:58 Creatine Kinase CK-MB (CK-2) 3.27 Troponin I < 0.012 Impressions: Chest X-Ray 09/24/16 13:10 IMPRESSION: NO SIGNIFICANT RADIOGRAPHIC FINDING IN THE CHEST. Abdomen/Pelvis CT 09/25/16 00:00 IMPRESSION: 1. A 5 cm complex cystic mass of the right upper quadrant may indicate a pancreatic neoplasm ; differential diagnosis includes abscess and complex pseudocyst. Further evaluation with dynamic contrast MRI of the abdomen recommended. 2. Cholelithiasis. Abdomen MRI 09/27/16 00:00 IMPRESSION: Complex mass which appears to be in the head of the pancreas measuring 4.5 cm with a central cystic/ necrotic component. Epicenter appears to be in the pancreas. Compression of the pancreatic duct posteriorly. Plan Discharge Plan: Transfer to [facility] when bed is available. Time Spent: Greater than 30 Minutes
[2016-09-27 13:21] VITALS: BP 145/80
[2016-09-27] MEDS ORDERED: BISACODYL 10 MG SUPP.RECT PR ONE (14:00)
== END 2016-09-27 14:45 | disposition short-term general hospital (02) | DRG 440 ==
LOC: ER 12:24 → OBSVTOIN 14:26 → INTOOBSV 14:26 → EH 14:26 → UNDOADMOB 14:26 → 4N 16:42 → EH 16:42 → 4N 19:14 → OBSVTOIN 19:14
PROVIDERS: ADMIT Internal Medicine Geriatric Medicine; ATTEND Internal Medicine Geriatric Medicine
DX: K85.90 Acute pancreatitis without necrosis or infection, unspecified (principal); K86.89 Other specified diseases of pancreas; K80.20 Calculus of gallbladder without cholecystitis without obstruction; J44.9 Chronic obstructive pulmonary disease, unspecified; I10 Essential (primary) hypertension; E87.6 Hypokalemia; E16.2 Hypoglycemia, unspecified; M19.90 Unspecified osteoarthritis, unspecified site; Z98.51 Tubal ligation status
CPT/HCPCS: 36415; 71020; 74177; 74183; 80053; 80061; 82150; 82550; 82553; 82962; 83690; 83735; 84484; 85025; 85610; 93005; 93010; 99285; A9576; J0696; J1650; J2060; J2270; J2405; J3480; J3490; J7030

== ENCOUNTER → 2017-07-22 | Outpatient (CLI) | payer BC ==
--- NOTE | 2017-07-22 09:51 | WOMENS IMAGING REPORT ---
EXAM DESCRIPTION: BILAT SCREENING MAMMO W/CAD COMPLETED DATE/TIME: 07/22/2017 9:28 am REASON FOR STUDY: ROUTINE SCREENING;Z12.31 Z12.31 ENCNTR SCREEN MAMMOGRAM FOR MALIGNANT NEOPLASM OF CASI COMPARISON: 03/03/2016 and 02/26/2011. TECHNIQUE: Standard craniocaudal and mediolateral oblique views of each breast recorded using digita l acquisition. LIMITATIONS: None. FINDINGS: No masses, calcifications or architectural distortion. No areas of suspicion. Read with the assistance of CAD. .[facility] - R2 C[employer]ova Version 1.3 .[facility] - R2 Cenova Version 1.3 .[facility] Imaging - R2 Cenova Version 2.4 .[facility] - R2 Cenova Version 2.4 .[facility] - R2 [employer] Version 9.2 IMPRESSION: NORMAL MAMMOGRAM. BIRADS 1. BREAST DENSITY: b. There are scattered areas of fibroglandular density. BIRAD: 1 NEGATIVE RECOMMENDATION: ROUTINE SCREENING COMMENT: The patient has been notified of the results by letter per SA requirements. Additional no tification policies are in place for contacting patient with suspicious or incomplete findings. Quality ID #[id number]: The [employer] [place] recommends an annual screening mammogram for women aged 40 years or over. This facility utilizes a reminder system to ensure that all patients receive reminder letters, and/or direct phone calls for appointments. This includes reminders for routine scr eening mammograms, diagnostic mammograms, or other Breast Imaging Interventions when appropriate. Th is patient will be placed in the appropriate reminder system. The [place] (ACR) has developed recommendations for screening MRI of the breast s in certain patient populations, to be used in conjunction with mammography. Breast MRI surveillanc e may be appropriate for women with more than 20% lifetime risk of developing breast cancer as deter mined by genetic testing, significant family history of the disease, or history of mantle radiation f or Hodgkins Disease. ACR Practice Guidelines 2008. TECHNICAL DOCUMENTATION: FINDING NUMBER: (1) ASSESSMENT: (1) JOB ID: [id number] [employer]- All Rights Reserved Reading location - IP/workstation name: [facility]
== END ==
LOC: WI 08:56
PROVIDERS: ATTEND Internal Medicine Geriatric Medicine
DX: Z12.31 Encounter for screening mammogram for malignant neoplasm of breast (principal)
CPT/HCPCS: 77067

== ENCOUNTER → 2018-06-14 | Outpatient (CLI) | payer BC ==
[2018-06-14 10:45] LABS: IRON(TIBC) 63.4 ug/dL (37-170)
== END ==
LOC: OD 09:36
PROVIDERS: ATTEND Internal Medicine Geriatric Medicine
DX: D50.9 Iron deficiency anemia, unspecified (principal)
CPT/HCPCS: 36415; 82728; 83540; 83550

== ENCOUNTER 2018-07-04 22:29 | Emergency (ER) | payer BC ==
[2018-07-04] MEDS ORDERED: ASPIRIN 81 MG TABLET, CHEWABLE PO ONE (22:50)
--- NOTE | 2018-07-04 23:19 | RADIOLOGY REPORT (SQ) ---
EXAM DESCRIPTION: XR CHEST 1 VIEW COMPLETED DATE/TME: 07/04/2018 22:50 CLINICAL HISTORY: 53 years, Female, CHEST PAIN COMPARISON: Prior study from 09/24/2016 NUMBER OF VIEWS: One TECHNIQUE: Single frontal view of the chest was obtained LIMITATIONS: None. FINDINGS: Right IJ approach central venous port catheter tip is located in the SVC. Cardiac and mediastinal contours are stable. Lungs are clear. No pleural effusion or pneumothorax. IMPRESSION: No acute disease. copyright 2010 [employer]- All Rights Reserved
--- NOTE | 2018-07-05 | EKG REPORT ---
SEVERITY:- BORDERLINE ECG - SINUS RHYTHM BORDERLINE T WAVE ABNORMALITIES BORDERLINE PROLONGED QT INTERVAL : Confirmed by: Cal Santillan 04-Jul-2018 23:59:57
[2018-07-05] MEDS ORDERED: KETOROLAC TROMETHAMINE INJ/PF 30 MG/1 ML SDV IV ONE (00:40)
--- NOTE | 2018-07-05 00:47 | ER Document Report ---
ED General - General Chief Complaint: Chest Pain > 30 Stated Complaint: CHEST PAIN Time Seen by Provider: 07/05/18 00:26 Primary Care Provider: SADE ROSARIO MD [Primary Care Provider] - Follow up as needed TRAVEL OUTSIDE OF THE [place] IN LAST 30 DAYS: No - HPI Notes: Patient is a 53-year-old female that presents to the emergency department for chief complaint of right shoulder and neck pain. Patient states that about 3 PM today she started having sharp pains in the back of her right shoulder that radiated up into her right neck. She states it is worse with movement and relieved with rest. She denies any injury or trauma. She denies any strenuous activity including heavy lifting. She denies issues with pain on that side before. She states the pain does not radiate into her chest she denies any shortness of breath. She has not taken any medication for her pain. She did receive an aspirin in triage which she states has not changed her symptoms. She does report some radiation of the pain down into her right shoulder and deltoid region as well. She denies history of cardiac disease and has never had a stress test. Past Medical History: Hypertension Past Surgical History: Reviewed in chart Social History: Denies tobacco or alcohol use Family History: Reviewed and noncontributory for presenting illness Allergies: Reviewed, see documented allergy list. REVIEW OF SYSTEMS: CONSTITUTIONAL : No fever No chills No diaphoresis No recent illness EENT: No vision changes No congestion No sore throat CARDIOVASCULAR: No chest pain No palpitations RESPIRATORY: No shortness of breath No cough No difficulty breathing GASTROINTESTINAL: No abdominal pain No nausea No vomiting No diarrhea GENITOURINARY: No dysuria No hematuria No difficulty urinating MUSCULOSKELETAL: No back pain No leg pain right shoulder pain neck pain SKIN: No rashes No lesions LYMPHATIC: No swollen, enlarged glands. NEUROLOGICAL: No lightheadedness No headache No weakness No paresthesias PSYCHIATRIC: No anxiety No depression PHYSICAL EXAMINATION: Vital signs reviewed, nursing noted reviewed. GENERAL: Well-appearing, well-nourished and in no acute distress. HEAD: Atraumatic, normocephalic. EYES: Eyes appear normal, extraocular movements intact, sclera anicteric, conjunctiva are normal. ENT: nares patent, oropharynx clear without exudates. Moist mucous membranes. NECK: Normal range of motion, supple without lymphadenopathy, tenderness to palpation of right paraspinal cervical musculature and right trapezius. LUNGS: Breath sounds clear to auscultation bilaterally and equal. No wheezes rales or rhonchi. HEART: Regular rate and rhythm without murmurs ABDOMEN: Soft, nontender, normoactive bowel sounds. No rebound, guarding, or rigidity. No masses appreciated. EXTREMITIES: Right trapezius tenderness and spasm, no bony tenderness in the right shoulder, normal range of motion of right shoulder, no joint edema or erythema, no anterior chest wall tenderness nontender, good range of motion, no pitting or edema. NEUROLOGICAL: No focal neurological deficits. Moves all extremities spontaneously Motor and sensory grossly intact on exam. PSYCH: Normal mood, normal affect. SKIN: Warm, Dry, normal turgor, no rashes or lesions noted on exposed skin - Related Data Allergies/Adverse Reactions: No Known Allergies Allergy (Verified 09/24/16 12:50) Past Medical History - Social History Smoking Status: Never Smoker Family History: Reviewed & Not Pertinent - Past Medical History Cardiac Medical History: Reports: Hx Hypertension Renal/ Medical History: Denies: Hx Peritoneal Dialysis - Immunizations Hx Diphtheria, Pertussis, Tetanus Vaccination: Yes Physical Exam - Vital signs Vitals: Temp Pulse Resp BP Pulse Ox 97.4 F 71 16 151/82 H 97 07/04/18 23:20 07/04/18 23:20 07/04/18 23:20 07/04/18 23:20 07/04/18 23:20 Course - Re-evaluation Re-evalutation: 07/05/18 02:08 Vitals reviewed. Nursing notes reviewed. Patient given medication for symptom medic management. Her workup today is unremarkable. She has not had any chest pain or shortness of breath. Her pain is reproducible in the right trapezius. Her symptoms are musculoskeletal in nature. She will be started on Flexeril for muscle spasms. Patient counseled on stretching heat and rest. She will be discharged home in stable condition. Laboratory 07/05/18 07/05/18 07/05/18 01:00 01:00 01:00 WBC 6.0 RBC 4.70 Hgb 12.6 Hct 36.9 MCV 78 L MCH 26.7 L MCHC 34.0 RDW 13.9 Plt Count 197 Seg Neutrophils % 55.4 Lymphocytes % 32.0 Monocytes % 8.0 Eosinophils % 3.6 Basophils % 1.0 Absolute Neutrophils 3.3 Absolute Lymphocytes 1.9 Absolute Monocytes 0.5 Absolute Eosinophils 0.2 Absolute Basophils 0.1 Sodium 143.7 Potassium 3.5 L Chloride 109 H Carbon Dioxide 27 Anion Gap 8 BUN 16 Creatinine 0.71 Est GFR ( Amer) > 60 Est GFR (Non-Af Amer) > 60 Glucose 98 Calcium 9.9 Total Bilirubin 0.9 Direct Bilirubin 0.2 Neonat Total Bilirubin Not Reportable Neonat Direct Bilirubin Not Reportable Neonat Indirect Bili Not Reportable AST 23 ALT 21 Alkaline Phosphatase 102 Troponin I < 0.012 Total Protein 7.3 Albumin 4.2 Chest X-Ray 07/04/18 22:50 IMPRESSION: No acute disease. copyright 2010 [employer]- All Rights Reserved - Vital Signs Vital signs: Temp Pulse Resp BP Pulse Ox 97.4 F 71 16 151/82 H 97 07/04/18 23:20 07/04/18 23:20 07/04/18 23:20 07/04/18 23:20 07/04/18 23:20 - Laboratory Result Diagrams: 07/05/18 01:00 07/05/18 01:00 Laboratory results interpreted by me: 07/05/18 07/05/18 01:00 01:00 MCV 78 L MCH 26.7 L Potassium 3.5 L Chloride 109 H Discharge - Discharge Clinical Impression: Strain of right trapezius muscle Qualifiers: Encounter type: initial encounter Qualified Code(s): S46.811A - Strain of other muscles, fascia and tendons at shoulder and upper arm level, right arm, initial encounter Condition: Stable Disposition: HOME, SELF-CARE Instructions: Muscle Strain ([facility]) Additional Instructions: Please return to the emergency department if you have any worsening, or concern of your symptoms. Please return to the emergency department if you develop chest pain, difficulty breathing, severe abdominal pain, or ongoing vomiting. Please follow-up with your primary care physician in 2-3 days and any other recommended physicians. If prescribed, take all medications as directed. If you have any questions or concerns do not hesitate to return the emergency department for evaluation. Prescriptions: Cyclobenzaprine HCl [Flexeril 5 mg Tablet] 5 mg PO TID PRN #15 tablet PRN Reason: Pain Referrals: OSUNKOYA,SADE, MD [Primary Care Provider] - Follow up in 3-5 days
[2018-07-05 01:16] LABS: ABSOLUTE BASOPHILS # (AUTO) 0.1 10^3/uL (0.0-0.2); ABSOLUTE EOSINOPHILS # (AUTO) 0.2 10^3/uL (0.0-0.6); ABSOLUTE LYMPHOCYTES (AUTO) 1.9 10^3/uL (0.5-4.7); ABSOLUTE MONOCYTES (AUTO) 0.5 10^3/uL (0.1-1.4); ABSOLUTE NEUT (AUTO) 3.3 10^3/uL (1.7-8.2); EOSINOPHILS % (AUTO) 3.6 % (0-6); HEMATOCRIT 36.9 % (36.0-47.0); HEMOGLOBIN 12.6 g/dL (12.0-15.5); MEAN CORPUSCULAR HEMOGLOBIN 26.7 pg (27.0-33.4); MEAN CORPUSCULAR VOLUME 78 fl (80-97); PLATELET COUNT 197 10^3/uL (150-450); RED CELL DISTRIBUTION WIDTH 13.9 % (11.5-14.0); SEGMENTED NEUTROPHILS % (AUTO) 55.4 % (42-78); TOTAL CELLS COUNTED % (AUTO) 100 %
[2018-07-05 01:35] LABS: ALANINE AMINOTRANSFERASE 21 U/L (9-52); ALBUMIN 4.2 g/dL (3.5-5.0); ALKALINE PHOSPHATASE 102 U/L (38-126); ANION GAP 8 (5-19); ASPARTATE AMINO TRANSFERASE 23 U/L (14-36); BILIRUBIN,DIRECT 0.2 mg/dL (0.0-0.4); BILIRUBIN,TOTAL 0.9 mg/dL (0.2-1.3); BLOOD UREA NITROGEN 16 mg/dL (7-20); CALCIUM 9.9 mg/dL (8.4-10.2); CARBON DIOXIDE 27 mmol/L (22-30); CHLORIDE 109 mmol/L (98-107); GLUCOSE 98 mg/dL (75-110); POTASSIUM 3.5 mmol/L (3.6-5.0); SODIUM 143.7 mmol/L (137-145); TOTAL PROTEIN 7.3 g/dL (6.3-8.2)
[2018-07-05 02:15] VITALS: BP 148/95
== END 2018-07-05 02:30 | disposition home or self-care (01) ==
LOC: ER 22:29
DX: S29.012A Strain of muscle and tendon of back wall of thorax, initial encounter (principal); X58.XXXA Exposure to other specified factors, initial encounter; M25.511 Pain in right shoulder; M54.2 Cervicalgia; I10 Essential (primary) hypertension; M62.838 Other muscle spasm
CPT/HCPCS: 93005; 99284; 96374; 36415; 85025; 80053; 84484; 71045; 93010; J1885

== ENCOUNTER → 2020-02-07 | Outpatient (CLI) | payer MEDICARE, OTHER ==
--- NOTE | 2020-02-07 13:39 | WOMENS IMAGING REPORT ---
EXAM DESCRIPTION: BILAT SCREENING MAMMO W/CAD IMAGES COMPLETED DATE/TIME: 02/07/2020 11:19 am REASON FOR STUDY: ROUTINE SCREENING MAMMOGRAM Z12.31 Z12.31 ENCNTR SCREEN MAMMOGRAM FOR MALIGNANT N EOPLASM OF CASI COMPARISON: 07/22/2017 and 03/03/2016. EXAM PARAMETERS: Standard craniocaudal and mediolateral oblique views of each breast recorded using digital acquisition. Read with the assistance of CAD. .[facility] - [employer] Radiology Therapist Version 9.2 LIMITATIONS: None. FINDINGS: No suspicious masses, suspicious calcifications or architectural distortion. No areas of c oncern. IMPRESSION: NEGATIVE MAMMOGRAM. BIRADS 1 BREAST DENSITY: a. The breasts are almost entirely fatty. BIRAD: ASSESSMENT: 1 NEGATIVE RECOMMENDATION: ROUTINE SCREENING COMMENT: The patient has been notified of the results by letter per MQSA requirements. Additional no tification policies are in place for contacting patient with suspicious or incomplete findings. Quality ID #[id number]: The [place] [employer] recommends an annual screening mammogram for women aged 40 years or over. This facility utilizes a reminder system to ensure that all patients receive reminder letters, and/or direct phone calls for appointments. This includes reminders for routine scr eening mammograms, diagnostic mammograms, or other Breast Imaging Interventions when appropriate. Th is patient will be placed in the appropriate reminder system. TECHNICAL DOCUMENTATION: FINDING NUMBER: (1) ASSESSMENT: (1) JOB ID: [id number] [employer]- All Rights Reserved Reading location - IP/workstation name: [email or web address]
== END ==
LOC: WI 11:10
PROVIDERS: ATTEND Internal Medicine Geriatric Medicine
DX: Z12.31 Encounter for screening mammogram for malignant neoplasm of breast (principal)
CPT/HCPCS: 77067